=== PATIENT | female | born 1985 | race Two or more races ===

== ENCOUNTER 2022-10-12 10:02 | Inpatient (IN) | payer MEDICAID ==
[2022-10-11 10:50] LABS: Basophils # (auto) 0 10 ^3/uL (0-0.2); Basophils % (auto) 0.2 % (0.0-2.0); Eosinophils # (auto) 0 10 ^3/uL (0-0.8); Eosinophils % (auto) 0.4 % (0.0-7.0); Hematocrit 38.9 % (36.0-46.0); Lymphocytes # (auto) 1.8 10 ^3/uL (0.4-5.4); Lymphocytes % (auto) 15.2 % (10.0-50.0); Mean Corpuscular Hgb Conc. 33.5 g/dL (32.0-36.0); Mean Corpuscular Volume 83.7 fL (80.0-100.0); Monocytes # (auto) 0.8 10 ^3/uL (0-1.3); Monocytes % (auto) 6.8 % (0.0-12.0); Neutrophils # (auto) 9.1 10 ^3/uL (1.6-8.6); Neutrophils % (auto) 77.4 % (37.0-80.0); Red Blood Cells 4.64 10^6/uL (4.0-5.20); Red Cell Distribution Width 17.1 % (11.8-14.3); White Blood Cell 11.8 10^3/uL (4.4-10.8)
[2022-10-11 11:07] LABS: Albumin 3.1 g/dL (3.4-5.0); Calcium 9.3 mg/dL (8.5-10.1); Potassium 4.3 mmol/L (3.5-5.1)
[2022-10-11 11:08] LABS: Urine Bacteria FEW /hpf (None Seen); Urine Blood Negative /uL (Negative); Urine Specific Gravity 1.015 (1.001-1.035); Urine WBC <1 /hpf (0 - 5)
[2022-10-11 11:10] LABS: BUN/Creatinine Ratio 22.7; Bilirubin, Total 0.2 mg/dL (0.2-1.0); Total Protein 7.6 g/dL (6.4-8.2)
[2022-10-11 11:11] LABS: Alcohol, Urine < 3.0 mg/dL (0-10); Amphetamine Screen, Urine NEGATIVE (NEGATIVE); Barbiturate Scree,Urine NEGATIVE (NEGATIVE); Benzodiazephine Screen, Urine NEGATIVE (NEGATIVE); Cannabinoid Screen, Urine NEGATIVE (NEGATIVE); Cocaine Screen, Urine NEGATIVE (NEGATIVE); Opiate Scree,Urine NEGATIVE (NEGATIVE); Phencyclidine Screen, Urine NEGATIVE (NEGATIVE)
[2022-10-11 14:23] LABS: INR 0.86 (0.9-1.15); Partial Thromboplastin Time 32.3 sec (24.6-33.4)
[~2022-10-12] VITALS: Ht 30.5 cm; Wt 0.5 kg
[2022-10-12] VITALS (11 sets, daily range): BP systolic 109–127; BP diastolic 56–77
[2022-10-12 06:06] LABS: RPR Non Reactive (Non Reactive)
[2022-10-12] MEDS ORDERED: LACTATED RINGER'S 1,000 ML IV SCH (12:45)
[2022-10-12] MEDS ORDERED: ceFAZolin 1GM/50ML 50 ML IV ONE (12:45)
[2022-10-12] MEDS ORDERED: LACTATED RINGER'S 1,000 ML IV ONE (12:45)
[2022-10-12] MEDS ORDERED: CLINDAMYCIN 900MG IV 50 ML IV ONE (12:45)
[2022-10-12] MEDS ORDERED: MORPHINE SULF PF 5 MG/10 ML VIAL ONE (13:42)
[2022-10-12] MEDS ORDERED: fentaNYL CITRATE 100 MCG/2 ML VL ONE (13:43)
[2022-10-12] MEDS ORDERED: DexAMETHasone SOD PHOS 10MG/1ML VIAL INJ ONE (13:46)
[2022-10-12] MEDS ORDERED: ONDANSETRON HCL 4 MG/2 ML VIAL ONE (13:46)
[2022-10-12] MEDS ORDERED: oxyTOCIN 10 UNIT/ML 10ML VIAL ONE (13:47)
[2022-10-12] MEDS ORDERED: CARBOPROST TROMETHAMINE 250 MCG/1ML VIAL IM ONE (14:33)
[2022-10-12] MEDS ORDERED: LACT. RINGERS/OXYTOCIN 20UNITS 1,000 ML IV ONE (14:45)
[2022-10-12] MEDS ORDERED: ONDANSETRON HCL 4 MG/2 ML VIAL IV PRN ×3 (14:45→15:30)
[2022-10-12] MEDS ORDERED: GUM (CHEWING) 1 GUM CHEW CHEW ONE (14:45)
[2022-10-12] MEDS ORDERED: HYDROmorphone HCL 2 MG/ML VL/or syr IV PRN ×2 (15:30)
[2022-10-12] MEDS ORDERED: NALOXONE HCL 0.4 MG/ML VIAL IV PRN ×2 (15:30)
[2022-10-12] MEDS ORDERED: FLUMAZENIL 0.1 MG/ML INJ 10ML MDV IV PRN (15:30)
[2022-10-12] MEDS ORDERED: ePHEDrine SULFATE 50 MG/ML AMP IV PRN (15:30)
[2022-10-12] MEDS ORDERED: LABETALOL HCL 5 MG/ML 4ML SYRINGE IV PRN (15:30)
[2022-10-12] MEDS ORDERED: diphenhdrAMINE HCL 50 MG/1 ML VL IV PRN (15:30)
[2022-10-12] MEDS ORDERED: fentaNYL CITRATE 100 MCG/2 ML VL IV PRN (15:30)
[2022-10-12] MEDS ORDERED: hydrALAZINE HCL 20 MG/ML VL IV PRN (15:30)
[2022-10-12] MEDS ORDERED: NALBUPHINE HCL 10 MG/1ml INJECTION IV ONE (15:30)
[2022-10-12] MEDS: CLINDAMYCIN 900MG IV 50 ML IV SCH (22:19)
[2022-10-12 22:28] LABS: Basophils # (auto) 0 10 ^3/uL (0-0.2); Basophils % (auto) 0.2 % (0.0-2.0); Eosinophils # (auto) 0 10 ^3/uL (0-0.8); Hematocrit 36.7 % (36.0-46.0); Hemoglobin 12.3 g/dL (12.2-16.2); Lymphocytes # (auto) 1.7 10 ^3/uL (0.4-5.4); Lymphocytes % (auto) 7.1 % (10.0-50.0); Mean Corpuscular Hemoglobin 28.2 pg (28.0-32.0); Mean Corpuscular Hgb Conc. 33.4 g/dL (32.0-36.0); Mean Corpuscular Volume 84.5 fL (80.0-100.0); Monocytes # (auto) 0.6 10 ^3/uL (0-1.3); Monocytes % (auto) 2.3 % (0.0-12.0); Neutrophils # (auto) 22.2 10 ^3/uL (1.6-8.6); Neutrophils % (auto) 90.4 % (37.0-80.0); Red Blood Cells 4.34 10^6/uL (4.0-5.20); Red Cell Distribution Width 17.1 % (11.8-14.3); White Blood Cell 24.5 10^3/uL (4.4-10.8)
[2022-10-13] VITALS (11 sets, daily range): BP systolic 86–111; BP diastolic 55–69
[2022-10-13 06:48] LABS: Basophils # (auto) 0.1 10 ^3/uL (0-0.2); Basophils % (auto) 0.4 % (0.0-2.0); Eosinophils # (auto) 0 10 ^3/uL (0-0.8); Hemoglobin 11.4 g/dL (12.2-16.2); Lymphocytes # (auto) 2.8 10 ^3/uL (0.4-5.4); Lymphocytes % (auto) 12.1 % (10.0-50.0); Mean Corpuscular Hemoglobin 28.5 pg (28.0-32.0); Mean Corpuscular Hgb Conc. 34.4 g/dL (32.0-36.0); Mean Corpuscular Volume 82.8 fL (80.0-100.0); Monocytes # (auto) 1.4 10 ^3/uL (0-1.3); Monocytes % (auto) 6.1 % (0.0-12.0); Neutrophils % (auto) 81.4 % (37.0-80.0); Red Blood Cells 3.98 10^6/uL (4.0-5.20); Red Cell Distribution Width 17.3 % (11.8-14.3); White Blood Cell 23.3 10^3/uL (4.4-10.8)
[2022-10-13] MEDS ORDERED: HYDR-4902 PO (07:36)
[2022-10-13] MEDS ORDERED: DOCU-94 PO (07:36)
[2022-10-13] MEDS ORDERED: IBUP800T27 PO (07:36)
[2022-10-13] MEDS: CLINDAMYCIN 900MG IV 50 ML IV SCH ×2 (10:27→19:12)
[2022-10-13] MEDS ORDERED: HYDROcodone-ACET 5/325MG TAB PO PRN (10:45)
[2022-10-13] MEDS ORDERED: BISACODYL 10 MG RECT SUPP PR PRN (10:45)
[2022-10-13] MEDS: SIMETHICONE 80 MG CHEWABLE TABLET PO SCH ×3 (11:48→22:24)
[2022-10-13] MEDS: HYDROcodone-ACET 5/325MG TAB PO PRN (11:49)
[2022-10-13] MEDS ORDERED: PHENYLEPHRINE HCL 10 MG/ML VL IV ONE (14:11)
[2022-10-13] MEDS: IBUPROFEN 800 MG TAB PO PRN (19:11)
[2022-10-13] MEDS: DOCUSATE SOD 100 MG CAP PO SCH (22:24)
[2022-10-14 02:40] VITALS: BP 94/52
[2022-10-14] MEDS: CLINDAMYCIN 900MG IV 50 ML IV SCH ×3 (06:01→22:17)
[2022-10-14] MEDS: SIMETHICONE 80 MG CHEWABLE TABLET PO SCH ×4 (06:30→22:17)
[2022-10-14 06:48] VITALS: BP 97/57
[2022-10-14] MEDS: DOCUSATE CALCIUM 240 MG CAP PO SCH (10:24)
[2022-10-14] MEDS: IBUPROFEN 800 MG TAB PO PRN ×2 (10:25→18:46)
[2022-10-14] MEDS: DOCUSATE SOD 100 MG CAP PO SCH ×2 (10:25→22:17)
[2022-10-14 10:50] VITALS: BP 103/66
[2022-10-14 15:00] VITALS: BP 104/64
[2022-10-14 19:00] VITALS: BP 101/59
[2022-10-14 23:00] VITALS: BP 107/72
[2022-10-15 03:00] VITALS: BP 102/58
[2022-10-15] MEDS ORDERED: TETANUS-DIPTH-ACEL PERTUSSIS 0.5ML SYR Tdap IM ONE (04:15)
[2022-10-15] MEDS: IBUPROFEN 800 MG TAB PO PRN (04:37)
[2022-10-15] MEDS: SIMETHICONE 80 MG CHEWABLE TABLET PO SCH (05:40)
[2022-10-15 06:45] VITALS: BP 99/58
[2022-10-15 09:53] VITALS: BP 99/59
[2022-10-15] MEDS: DOCUSATE CALCIUM 240 MG CAP PO SCH (10:30)
[2022-10-15] MEDS: DOCUSATE SOD 100 MG CAP PO SCH (10:30)
[2022-10-15] MEDS: HYDROcodone-ACET 5/325MG TAB PO PRN (10:31)
[2022-10-15 10:50] VITALS: BP 103/60
== END 2022-10-15 11:15 | disposition home or self-care (01) | DRG 540 ==
LOC: LDRP 12:06
PROVIDERS: ADMIT Obstetrics & Gynecology; ATTEND Obstetrics & Gynecology
PROC: 10D00Z1 Extraction of Products of Conception, Low, Open Approach (ICD-10-PCS; principal; 2022-10-12 14:03)
PROC: 3E0234Z Introduction of Serum, Toxoid and Vaccine into Muscle, Percutaneous Approach (ICD-10-PCS; 2022-10-15)
DX: O34.211 Maternal care for low transverse scar from previous cesarean delivery (principal); Z20.822 Contact with and (suspected) exposure to COVID-19; Z37.0 Single live birth; Z3A.39 39 weeks gestation of pregnancy; Z88.1 Allergy status to other antibiotic agents; Z23 Encounter for immunization
CPT/HCPCS: 36415; 59025; 80053; 80307; 81001; 85025; 85610; 85730; 86592; 86850; 86900; 86901; 90715; 94760; 94762; 96360; 96361; 96365; 96366; 96372; G0378; J1100; J2405; J2590; J3490